=== PATIENT | female | born 1985 | race Caucasian/White ===

== ENCOUNTER 2019-03-25 23:09 | Emergency (ER) | payer OTHER ==
[~2019-03-25] VITALS: Ht 162.6 cm; Wt 88.9 kg
[2019-03-25 23:12] VITALS: Ht 162.6 cm; Wt 88.9 kg
[2019-03-26 00:15] VITALS: BP 144/92
== END 2019-03-26 00:15 | disposition home or self-care (01) ==
LOC: ED 23:09
DX: F41.9 Anxiety disorder, unspecified (principal); J45.909 Unspecified asthma, uncomplicated
CPT/HCPCS: J2060

== ENCOUNTER 2019-06-22 08:26 | Emergency (ER) | payer OTHER ==
[~2019-06-22] VITALS: Ht 165.1 cm; Wt 90.7 kg
[2019-06-22 08:33] VITALS: Ht 165.1 cm; Wt 90.7 kg
[2019-06-22 09:29] VITALS: BP 129/74
== END 2019-06-22 09:31 | disposition home or self-care (01) ==
LOC: ED 08:26
DX: B34.9 Viral infection, unspecified (principal); J45.909 Unspecified asthma, uncomplicated

== ENCOUNTER 2020-07-31 23:51 | Emergency (ER) | payer OTHER ==
[~2020-07-31] VITALS: Ht 165.1 cm; Wt 93.6 kg
[2020-07-31 23:56] VITALS: Ht 165.1 cm; Wt 93.6 kg
[2020-08-01 00:40] LABS: PLATELET COUNT 327 x10^3mcL (179-408)
[2020-08-01 00:41] LABS: BASOPHIL % 3.4 % (0.2-1.3); RED CELL DISTRIBUTION WIDTH 17.3 % (12.3-17.7)
[2020-08-01 00:43] LABS: rbc morphology (normal/abnorm) ABNORMAL (NORMAL)
[2020-08-01 00:50] LABS: CALCIUM 8.2 mg/dL (8.5-10.1); CARBON DIOXIDE 26.2 mmol/L (21-32); CHLORIDE SERUM 101 mmol/L (98-107); CREATININE SERUM 0.8 mg/dL (0.6-1.0); GFR1 > 60 mL/min; GLUCOSE SERUM 101 mg/dL (74-106); POTASSIUM SERUM 3.3 mmol/L (3.5-5.1); SODIUM SERUM 140 mmol/L (136-145)
[2020-08-01 00:54] LABS: ALBUMIN 3.6 g/dL (3.4-5.0); ALKALINE PHOSPHATASE 81 U/L (46-116); ALT/SGPT 29 U/L (14-59); AST/SGOT 19 U/L (15-37); BILIRUBIN TOTAL 0.17 mg/dL (0.20-1.00); LIPASE 146 IU/L (73-393); TOTAL PROTEIN, SERUM 7.7 g/dL (6.4-8.2)
[2020-08-01] MEDS ORDERED: PEPCID40 MG PO (01:00)
[2020-08-01] MEDS ORDERED: ZOF4 PO (01:00)
[2020-08-01 01:18] VITALS: BP 116/65
== END 2020-08-01 01:18 | disposition home or self-care (01) ==
LOC: ED 23:51
DX: K29.70 Gastritis, unspecified, without bleeding (principal); J45.909 Unspecified asthma, uncomplicated
CPT/HCPCS: J1885; J2405; J3490; J7030